=== PATIENT | female | born 1995 | race Caucasian/White ===

== ENCOUNTER → 2021-04-19 | Outpatient (REF) ==
--- NOTE | 2021-04-19 13:16 | REP ---
INDICATION: BACK PAIN. COMPARISON: None TECHNIQUE: Three views FINDINGS: Vertebral body height is within normal limits. The disc spaces are symmetric and well maintained throughout. There is evidence of bilateral L5 spondylolysis with a minimal grade 1 L5 upon S1 spondylolisthesis. This is seen in limited fashion on this three view examination without obliques. The pedicles are intact bilaterally. IMPRESSION: Chronic changes as described above. <Electronically signed by Angel Head > 04/19/21 [id number]
== END ==
LOC: M PLAIMG 12:19
PROVIDERS: ATTEND Internal Medicine
DX: M43.06 Spondylolysis, lumbar region (principal); M43.17 Spondylolisthesis, lumbosacral region